=== PATIENT | female | born 1995 | race American Indian/Alaskan Native ===

== ENCOUNTER 2020-02-21 11:08 | Emergency (ER) | payer SELFPAY ==
[2020-02-21 11:15] VITALS: BP 152/108
--- NOTE | 2020-02-21 12:28 | Emergency Department Report ---
- General Chief Complaint: Upper Respiratory Infection Stated Complaint: HEADACHE/SORE THROAT/RUNNY NOSE Time Seen by Provider: 02/21/20 12:26 Source: patient Mode of arrival: Ambulatory Limitations: No Limitations - History of Present Illness Initial Comments: Patient is a 24-year-old female presents emergency room complaints of a cough that began 5 days ago. She states that she has a small amount of clear/green mucus production. She states that she is also been having a headache, sore throat, voice hoarseness. She is able to tolerate p.o. intake and does not have any difficulty with swallowing. She denies any fever, nausea, vomiting, diarrhea, shortness of breath, chest pain, abdominal pain. She states that she has been taking Mucinex, ibuprofen, Tylenol without much relief. She states that she has had a sick contact at work with similar symptoms. She denies any recent travel. She has a past medical history of sickle cell trait. No allergies to medications. She is currently on her menstrual cycle. - Related Data Previous Rx's Medication Instructions Recorded Last Taken Type Benzonatate [Tessalon Perles] 100 mg PO Q8HR PRN #14 capsule 02/21/20 Unknown Rx Prednisone [predniSONE 10 mg 10 mg PO .TAPER #1 tab.ds.pk 02/21/20 Unknown Rx (6-Day Pack, 21 Tabs)] guaiFENesin ER [Mucinex ER] 600 mg PO BID #14 tablet.er 02/21/20 Unknown Rx Allergies Allergy/AdvReac Type Severity Reaction Status Date / Time No Known Allergies Allergy Unverified 02/21/20 11:09 ED Review of Systems ROS: Stated complaint: HEADACHE/SORE THROAT/RUNNY NOSE Other details as noted in HPI Comment: All other systems reviewed and negative ED Past Medical Hx - Past Medical History Previous Medical History?: No - Surgical History Past Surgical History?: Yes Hx Cholecystectomy: Yes - Social History Smoking Status: Current Every Day Smoker Substance Use Type: Alcohol - Medications Home Medications: Home Medications Medication Instructions Recorded Confirmed Last Taken Type Benzonatate [Tessalon Perles] 100 mg PO Q8HR PRN #14 capsule 02/21/20 Unknown Rx Prednisone [predniSONE 10 mg 10 mg PO .TAPER #1 tab.ds.pk 02/21/20 Unknown Rx (6-Day Pack, 21 Tabs)] guaiFENesin ER [Mucinex ER] 600 mg PO BID #14 tablet.er 02/21/20 Unknown Rx ED Physical Exam - General Limitations: No Limitations General appearance: alert, in no apparent distress - Head Head exam: Present: atraumatic, normocephalic - Eye Eye exam: Present: normal appearance - ENT ENT exam: Present: normal orophraynx, mucous membranes moist, TM's normal bilaterally, normal external ear exam, other (voice is hoarse, uvula is midline, no uvular edema or deviation, no tongue elevation, no submandibular edema, no tonsilar hypertrophy or exdates, voice is not muffled) - Respiratory Respiratory exam: Present: normal lung sounds bilaterally. Absent: respiratory distress, wheezes, rales, rhonchi, stridor, chest wall tenderness, accessory muscle use, decreased breath sounds, prolonged expiratory - Cardiovascular Cardiovascular Exam: Present: regular rate, normal rhythm, normal heart sounds. Absent: systolic murmur, diastolic murmur, rubs, gallop - Neurological Exam Neurological exam: Present: alert, oriented X3 - Psychiatric Psychiatric exam: Present: normal affect, normal mood - Skin Skin exam: Present: warm, dry, intact ED Course Vital Signs 02/21/20 11:11 Temperature 98 F Pulse Rate 82 Respiratory 20 Rate Blood Pressure 152/108 O2 Sat by Pulse 100 Oximetry ED Medical Decision Making - Radiology Data Radiology results: report reviewed Ordering Physician: MARIVEL RODRIGUEZ Date of Service: 02/21/20 Procedure(s): XR chest routine 2V Accession Number(s): [id number] cc: MARIVEL RODRIGUEZ Fluoro Time In Minutes: CHEST 2 VIEWS INDICATION / CLINICAL INFORMATION: cough x 1 week. COMPARISON: None available. FINDINGS: SUPPORT DEVICES: None. HEART / MEDIASTINUM: Cardiac silhouette upper limits normal in size LUNGS / PLEURA: No significant pulmonary or pleural abnormality. No pneumothorax. ADDITIONAL FINDINGS: No significant additional findings. IMPRESSION: 1. No acute findings. Signer Name: Geraldo Gonzalez MD Signed: 02/21/2020 1:39 PM Workstation Name: [id number] Transcribed By: TL Dictated By: Geraldo Gonzalez MD Electronically Authenticated By: Geraldo Gonzalez MD Signed Date/Time: 02/21/20 133 DD/ 1339 TD/TT: - Medical Decision Making Patient is a 24-year-old female presents emergency room complaints of a cough that began 5 days ago. She states that she has a small amount of clear/green mucus production. She states that she is also been having a headache, sore throat, voice hoarseness. She is able to tolerate p.o. intake and does not have any difficulty with swallowing. She denies any fever, nausea, vomiting, diarrhea, shortness of breath, chest pain, abdominal pain. She states that she has been taking Mucinex, ibuprofen, Tylenol without much relief. She states that she has had a sick contact at work with similar symptoms. She denies any recent travel. She has a past medical history of sickle cell trait. No allergies to medications. She is currently on her menstrual cycle. Vitals are stable. Breath sounds are clear bilaterally, no wheezing, no rales, no rhonchi, normal oropharynx, voice is hoarse, uvula is midline, no uvular edema or deviation, no tongue elevation, no submandibular edema, no tonsilar hypertrophy or exdates, voice is not muffled. Chest x-ray: 1. No acute findings. Symptoms likely related to viral URI and laryngitis. Patient is presenting with the symptoms during COVID-19 pandemic, discussed COVID-19 with patient, discussed strict return precautions, discussed outpatient testing, discussed self quarantine. Patient given prescription for Tessalon Perls, prednisone, Mucinex. Patient does not meet criteria for admission or for hospital COVID-19 testing. She does not have any clinical signs or symptoms of bacterial pneumonia or bacterial bronchitis. Advised patient Please take medication as prescribed. Increase your water intake. Gargle with warm salt water 3 times a day. Drink warm tea and eat warm soup broth. Please increase your fluid intake over the next several days. May take Tylenol as needed for fever or body aches. Follow- up with a primary care doctor for reexamination. Return to emergency room immediately for any new or worsening symptoms including but not limited to difficulty breathing, shortness of breath, severe chest pain, unable to tolerate by mouth intake, etc. Please self quarantine for 10 days from the onset of your symptoms. Please do not go out in public. If you are around others at home please wear a mask. If you need to cough or sneeze please do so in a napkin and immediately throw it away and immediately wash your hands. Wash your hands frequently. Wipe everything down. Recommend for you to get COVID-19 testing, may have this done at primary care doctor, health department, [employer] [facility] - Differential Diagnosis URI, PNA, viral syndrome, COVID-19, laryngitis, bronchitis, pharyngitis Critical care attestation.: If time is entered above; I have spent that time in minutes in the direct care of this critically ill patient, excluding procedure time. ED Disposition Clinical Impression: Viral URI with cough, Laryngitis Disposition: TO HOME OR SELFCARE Is pt being admited?: No Does the pt Need Aspirin: No Condition: Stable Instructions: Viral Respiratory Infection, [id number], Laryngitis, [id number] Additional Instructions: Please take medication as prescribed. Increase your water intake. Gargle with warm salt water 3 times a day. Drink warm tea and eat warm soup broth. Please increase your fluid intake over the next several days. May take Tylenol as needed for fever or body aches. Follow-up with a primary care doctor for reexamination. Return to emergency room immediately for any new or worsening symptoms including but not limited to difficulty breathing, shortness of breath, severe chest pain, unable to tolerate by mouth intake, etc. Please self quarantine for 10 days from the onset of your symptoms. Please do not go out in public. If you are around others at home please wear a mask. If you need to cough or sneeze please do so in a napkin and immediately throw it away and immediately wash your hands. Wash your hands frequently. Wipe everything down. Recommend for you to get COVID-19 testing, may have this done at primary care doctor, health department, [facility] center Your chest x-ray today is normal, no signs of pneumonia Prescriptions: guaiFENesin ER [Mucinex ER] 600 mg PO BID #14 tablet.er Prednisone [predniSONE 10 mg (6-Day Pack, 21 Tabs)] 10 mg PO .TAPER #1 tab.ds.pk Benzonatate [Tessalon Perles] 100 mg PO Q8HR PRN #14 capsule PRN Reason: cough Referrals: PRIMARY CARE, [Primary Care Provider] - 2-3 Days Forms: Work/School Release Form(ED) Time of Disposition: 13:50 Print Language: MALAGASY
--- NOTE | 2020-02-21 13:44 | XRay Report ---
CHEST 2 VIEWS INDICATION / CLINICAL INFORMATION: cough x 1 week. COMPARISON: None available. FINDINGS: SUPPORT DEVICES: None. HEART / MEDIASTINUM: Cardiac silhouette upper limits normal in size LUNGS / PLEURA: No significant pulmonary or pleural abnormality. No pneumothorax. ADDITIONAL FINDINGS: No significant additional findings. IMPRESSION: 1. No acute findings. Signer Name: Geraldo Gonzalez MD Signed: 02/21/2020 1:39 PM Workstation Name: [id number]
== END 2020-02-21 14:38 | disposition home or self-care (01) ==
LOC: ED 11:08
DX: J06.9 Acute upper respiratory infection, unspecified (principal); J04.0 Acute laryngitis; F17.200 Nicotine dependence, unspecified, uncomplicated; Z90.49 Acquired absence of other specified parts of digestive tract; Z79.899 Other long term (current) drug therapy
CPT/HCPCS: 71046

== ENCOUNTER 2020-08-02 08:03 | Emergency (ER) | payer SELFPAY | END 2020-08-02 09:00 | disposition left against medical advice (07) | LOC: ED 08:03 ==

== ENCOUNTER 2021-04-04 07:40 | Emergency (ER) | payer MEDICAID ==
[2021-04-04] MEDS ORDERED: ASPIRIN 325 MG TAB PO ONE (08:43)
[2021-04-04 09:24] LABS: Basophils # (Auto) 0.1 K/mm3 (0.0-0.1); Basophils % (Auto) 0.6 % (0.0-1.8); Eosinophils # (Auto) 0.1 K/mm3 (0.0-0.4); Eosinophils % (Auto) 1.2 % (0.0-4.3); Hematocrit 40.6 % (30.3-42.9); Hemoglobin 12.7 gm/dl (10.1-14.3); Lymphocytes % (Auto) 26.6 % (13.4-35.0); Mean Corpuscular HGB Conc 31 % (30-34); Mean Corpuscular Volume 92 fl (79-97); Monocytes # (Auto) 0.8 K/mm3 (0.0-0.8); Monocytes % (Auto) 7.3 % (0.0-7.3); Platelet Count 335 K/mm3 (140-440); Red Blood Count 4.42 M/mm3 (3.65-5.03); Red Cell Distribution Width 16.9 % (13.2-15.2)
--- NOTE | 2021-04-04 09:40 | XRay Report ---
CHEST PA AND LATERAL VIEWS INDICATION: chest pain. COMPARISON: 02/21/2020 FINDINGS: Support devices: None. Heart: Stable. Lungs/Pleura: No acute pulmonary or pleural findings. IMPRESSION: 1. No acute findings. Signer Name: Javier Smyth MD Signed: 04/04/2021 9:36 AM Workstation Name: [id number]
[2021-04-04 09:43] LABS: Alanine Aminotransferase 20 units/L (7-56); Albumin 4.1 g/dL (3.9-5); Blood Urea Nitrogen 8 mg/dL (7-17); Calcium 9.1 mg/dL (8.4-10.2); Hemolysis Index 7
[2021-04-04 09:56] LABS: BUN/Creatinine Ratio 11
[2021-04-04] MEDS ORDERED: FUROSEMIDE 20 MG TAB PO ONE (10:08)
[2021-04-04] MEDS ORDERED: ACETAMINOPHEN 325 MG TAB ONE ×2 (11:03)
[2021-04-04] MEDS ORDERED: ASPIRIN 325 MG TAB ONE (11:04)
--- NOTE | 2021-04-04 11:40 | Emergency Department Report ---
ED Palpitations HPI - General Chief Complaint: Chest Pain Stated Complaint: FAST HEART RATE Time Seen by Provider: 04/04/21 10:00 Source: patient Mode of arrival: Ambulatory Limitations: No Limitations - History of Present Illness MD Complaint: rapid heart beat -: Gradual, days(s) Context: occured during rest Associated Symptoms: chest pain, shortness of breath - Related Data Previous Rx's Medication Instructions Recorded Last Taken Type Benzonatate [Tessalon Perles] 100 mg PO Q8HR PRN #14 capsule 02/21/20 Unknown Rx Prednisone [predniSONE 10 mg 10 mg PO .TAPER #1 tab.ds.pk 02/21/20 Unknown Rx (6-Day Pack, 21 Tabs)] guaiFENesin ER [Mucinex ER] 600 mg PO BID #14 tablet.er 02/21/20 Unknown Rx Allergies Allergy/AdvReac Type Severity Reaction Status Date / Time No Known Allergies Allergy Unverified 02/21/20 11:09 ED Review of Systems ROS: Stated complaint: FAST HEART RATE Other details as noted in HPI Constitutional: denies: chills, fever Eyes: denies: eye pain, eye discharge, vision change ENT: denies: ear pain, throat pain Respiratory: denies: cough, shortness of breath, wheezing Cardiovascular: denies: chest pain, palpitations Endocrine: no symptoms reported Gastrointestinal: denies: abdominal pain, nausea, diarrhea Genitourinary: denies: urgency, dysuria, discharge Musculoskeletal: denies: back pain, joint swelling, arthralgia Skin: denies: rash, lesions Neurological: denies: headache, weakness, paresthesias Psychiatric: denies: anxiety, depression Hematological/Lymphatic: denies: easy bleeding, easy bruising ED Past Medical Hx - Past Medical History Previous Medical History?: Yes Hx Hypertension: Yes Hx Congestive Heart Failure: Yes - Surgical History Hx Cholecystectomy: Yes - Social History Smoking Status: Current Every Day Smoker Substance Use Type: Alcohol - Medications Home Medications: Home Medications Medication Instructions Recorded Confirmed Last Taken Type Benzonatate [Tessalon Perles] 100 mg PO Q8HR PRN #14 capsule 02/21/20 Unknown Rx Prednisone [predniSONE 10 mg 10 mg PO .TAPER #1 tab.ds.pk 02/21/20 Unknown Rx (6-Day Pack, 21 Tabs)] guaiFENesin ER [Mucinex ER] 600 mg PO BID #14 tablet.er 02/21/20 Unknown Rx ED Physical Exam - General Limitations: No Limitations General appearance: alert, in no apparent distress - Head Head exam: Present: atraumatic, normocephalic - Eye Eye exam: Present: normal appearance - ENT ENT exam: Present: mucous membranes moist - Neck Neck exam: Present: normal inspection - Respiratory Respiratory exam: Present: normal lung sounds bilaterally. Absent: respiratory distress - Cardiovascular Cardiovascular Exam: Present: regular rate, tachycardia. Absent: systolic murmur, diastolic murmur, rubs, gallop - GI/Abdominal GI/Abdominal exam: Present: soft, normal bowel sounds - Extremities Exam Extremities exam: Present: normal inspection - Back Exam Back exam: Present: normal inspection - Neurological Exam Neurological exam: Present: alert, oriented X3 - Psychiatric Psychiatric exam: Present: normal affect, normal mood - Skin Skin exam: Present: warm, dry, intact, normal color. Absent: rash ED Course Vital Signs 04/04/21 08:07 Temperature 97.8 F Pulse Rate 104 H Respiratory 18 Rate Blood Pressure 131/98 [Right] O2 Sat by Pulse 99 Oximetry - Reevaluation(s) Reevaluation #1: 04/04/21 11:39 VSS , LASIX GIVEN FEELS BETTER 04/04/21 12:21 WILL FOLLOW UP WITH [facility]IN COMER NO DISTRESS ED Medical Decision Making - Lab Data Result diagrams: 04/04/21 08:48 04/04/21 08:48 - EKG Data -: EKG Interpreted by Me EKG shows normal: sinus rhythm Rate: tachycardia - EKG Data When compared to previous EKG there are: no significant change Interpretation: no acute changes Critical care attestation.: If time is entered above; I have spent that time in minutes in the direct care of this critically ill patient, excluding procedure time. ED Disposition Clinical Impression: CHF (congestive heart failure), Palpitation Disposition: HOME / SELF CARE / HOMELESS Is pt being admited?: No Does the pt Need Aspirin: No Condition: Stable Instructions: Heart Failure, Self Care, [id number] Referrals: PRIMARY CARE, [Primary Care Provider] - 3-5 Days JUAN A CHENEY MD [Staff Physician] - 3-5 Days
[2021-04-04 12:46] VITALS: BP 126/92
== END 2021-04-04 12:46 | disposition home or self-care (01) ==
LOC: ED 07:40
DX: I11.0 Hypertensive heart disease with heart failure (principal); I50.9 Heart failure, unspecified; R00.2 Palpitations; F17.200 Nicotine dependence, unspecified, uncomplicated; Z90.49 Acquired absence of other specified parts of digestive tract; Z79.899 Other long term (current) drug therapy
CPT/HCPCS: 36415; 71046; 80053; 83880; 84484; 85025; 93005; 99283